=== PATIENT | female | born 1955 | race Caucasian/White ===

== ENCOUNTER 2020-03-29 06:02 | Emergency (ER) | payer BC ==
[~2020-03-29] VITALS: Ht 172.7 cm; Wt 86.4 kg
[2020-03-29] MEDS ORDERED: ONDA4TAB6 PO (06:35)
[2020-03-29] MEDS ORDERED: ondansetron 4mg rapidly disintigrating tab PO ONE ×2 (06:35→06:47)
[2020-03-29] MEDS: acetaminophen 325mg tablet PO ONE ×2 (06:35→06:59)
[2020-03-29] MEDS ORDERED: normal saline 1000ml 1,000 ML IV ONE (07:20)
[2020-03-29] MEDS ORDERED: ketorolac tromethamine 15mg/ml inj. IV ONE (07:20)
[2020-03-29 08:26] LABS: ALBUMIN 3.7 G/DL (3.4-5.0); ANION GAP 7 (8-16); BLOOD UREA NITROGEN 15 MG/DL (7-18); CALCIUM 8.6 MG/DL (8.5-10.1); CHLORIDE 101 MMOL/L (99-107); CREATININE 1.15 MG/DL (0.40-0.90); GLUCOSE 143 MG/DL (70-104); SODIUM 135 MMOL/L (135-145); TOTAL CARBON DIOXIDE 27.1 MMOL/L (24-32); eGFR 48 ML/MIN
[2020-03-29 08:27] LABS: POTASSIUM 4.3 MMOL/L (3.5-5.1)
[2020-03-29 08:53] LABS: BASOPHILS % (AUTO) 0.4 % (0-1); EOSINOPHILS % (AUTO) 0.2 % (0-6); HEMATOCRIT 35.7 % (35.0-45.0); HEMOGLOBIN 12.1 g/dl (12.0-16.0); LYMPHOCYTES # (AUTO) 0.3 X10'3 (1.1-4.8); LYMPHOCYTES % (AUTO) 6.9 % (21-51); MEAN CORPUSCULAR HEMOGLOBIN 28.4 PG (27.0-31.0); MEAN CORPUSCULAR HGB CONC 33.9 g/dL (33.0-36.5); MEAN CORPUSCULAR VOLUME 83.7 FL (78-98); MEAN PLATELET VOLUME 6.9 FL (7.4-10.4); MONOCYTES # (AUTO) 0.5 X10'3 (0-0.9); MONOCYTES % (AUTO) 10.8 % (2-12); NEUTROPHILS % (AUTO) 81.7 % (42-75); PLATELET COUNT 192 X10'3 (140-440); RED BLOOD COUNT 4.27 X10'6 (4.20-5.60); RED CELL DISTRIBUTION WIDTH 13.8 % (11.5-14.5); WHITE BLOOD COUNT 4.9 X10'3 (4.5-11.0)
[2020-03-29 09:16] VITALS: BP 113/52
== END 2020-03-29 09:25 | disposition home or self-care (01) ==
LOC: ER 06:03
DX: B34.9 Viral infection, unspecified (principal); R55 Syncope and collapse; R05 Cough; R11.0 Nausea; Z20.828 Contact with and (suspected) exposure to other viral communicable diseases; Z79.899 Other long term (current) drug therapy
CPT/HCPCS: 36415; 80048; 85025; 87502; 87503; 87635; 93005; 96361; 96374; 99285; J1885; J7030

== ENCOUNTER 2020-11-01 14:05 | Emergency (ER) | payer BC ==
[~2020-11-01] VITALS: Ht 172.7 cm; Wt 93.2 kg
[~2020-11-01 14:05] MED LIST: ONDA4TAB6 PO
[2020-11-01 14:15] VITALS: BP 184/87
== END 2020-11-01 15:17 | disposition home or self-care (01) ==
LOC: ER 14:07
DX: Z02.89 Encounter for other administrative examinations (principal); R52 Pain, unspecified; Z79.899 Other long term (current) drug therapy
CPT/HCPCS: 99281

== ENCOUNTER 2021-01-18 20:08 | Emergency (ER) | payer BC ==
[~2021-01-18] VITALS: Ht 172.7 cm; Wt 98.0 kg
[2021-01-18 20:14] VITALS: BP 194/91
== END 2021-01-18 23:11 | disposition home or self-care (01) ==
LOC: ER 20:09
DX: M79.675 Pain in left toe(s) (principal); Z79.899 Other long term (current) drug therapy
CPT/HCPCS: 73630; 99283